=== PATIENT | female | born 1940 | race Caucasian/White ===

== ENCOUNTER 2016-10-10 09:41 | Day surgery (SDC) | payer MEDICARE ==
[2016-10-08 13:53] VITALS: BMI 20.2
[~2016-10-10 09:41] MED LIST: LACTATED RINGERS 1,000 ML IV SCH; LIDOCAINE 1% 20 ML VIAL (10MG/ML) FOR IV START INTRADERMA PRN
[2016-10-10 10:45] VITALS: TEMP 97.6
[2016-10-10] MEDS ORDERED: LIDOCAINE 1% 20 ML VIAL (10MG/ML) FOR IV START INTRADERMA ONE (10:55)
[2016-10-10] MEDS ORDERED: hydrALAZINE HCL 20 MG/ML 1 ML VIAL ONE (11:19)
[2016-10-10] MEDS ORDERED: PROPOFOL 10 MG/ML 20 ML VIAL IV ONE (11:19)
[2016-10-10 11:50] VITALS: RESP 16
--- NOTE | 2016-10-10 12:00 | P.PCN ---
Date of Procedure: 10/10/16 Procedure(s) Performed: Procedure: Esophagogastroduodenoscopy and biopsy. Preoperative diagnosis: Chronic reflux symptoms and occasional dysphagia. Postoperative diagnosis: 1. Small sliding hiatal hernia with no obvious esophagitis or complicated reflux disease. 2. Minimal antral gastritis and duodenitis. 3. Multiple biopsies obtained from the duodenum, antrum and esophagus. Preparation and sedation: Were provided by anesthesia. Brief clinical history: The patient is a 76-year-old female who is referred for this evaluation because of chronic reflux symptoms and more recent occasional dysphagia. She had an upper endoscopy in 2007 around the time she had her colonoscopy. She has no other alarm symptoms. This evaluation is to assess for esophagitis or complicated reflux disease. Procedure: With the patient on her left lateral decubitus position and after informed consent and adequate sedation, I passed the Olympus-GIF 160 video upper endoscope through the cricopharyngeus down the esophagus. GE junction was around 40 cm from the incisors and there was a small, around 1 cm, sliding hiatal hernia. The esophagus did not show any erosions, ulcers, strictures or Mcnulty's esophagus. The endoscope was then passed into the stomach which was insufflated with air and inspected in detail including the retroflex view in the cardia. Finally, the endoscope was passed through the pylorus into the duodenum. Pyloric channel did not have any ulcers. The antrum as well as the duodenal bulb, post bulbar area and descending duodenum showed minimal erythema and minimal friability but no ulcers, erosions or bleeding. I obtained multiple biopsies from the duodenum, antrum and esophagus then the endoscope was withdrawn. There was no indication for dilation. The patient tolerated the procedure well. Plan: The patient was reassured. Will await biopsy results. She will continue her antireflux diet and measures and she will F/U with you as planned. We would be happy to see in the office if her symptoms recur or progress.
[2016-10-10 12:01] VITALS: BP 149/73; PULSE 89
== END 2016-10-10 12:44 | disposition home or self-care (01) ==
LOC: ORWHC2ENDO 09:41
DX: K29.50 Unspecified chronic gastritis without bleeding (principal); K21.0 Gastro-esophageal reflux disease with esophagitis; K20.0 Eosinophilic esophagitis; K44.9 Diaphragmatic hernia without obstruction or gangrene; I10 Essential (primary) hypertension; R32 Unspecified urinary incontinence; Z79.899 Other long term (current) drug therapy; Z88.2 Allergy status to sulfonamides; Z88.8 Allergy status to other drugs, medicaments and biological substances
CPT/HCPCS: 88305; 88342; 43239; J0360; J2704

== ENCOUNTER → 2016-11-01 | Outpatient (CLI) | payer MEDICARE ==
--- NOTE | 2016-11-05 08:36 | MM ---
Reason for exam: screening (asymptomatic). Last mammogram was performed 1 year and 1 month ago. History: Patient is postmenopausal. Physical Findings: A clinical breast exam by your physician is recommended on an annual basis and results should be correlated with mammographic findings. MG 3D Screening Mammo W/Cad Bilateral CC and MLO view(s) were taken. Prior study comparison: October 06, 2015, bilateral MG screening mammo w CAD. There are scattered fibroglandular densities. No significant changes when compared with prior studies. ASSESSMENT: Benign, BI-RAD 2 RECOMMENDATION: Routine screening mammogram of both breasts in 1 year.
== END | disposition home or self-care (01) ==
LOC: RADMAMWWP 10:49
PROVIDERS: ATTEND Family Medicine
DX: Z12.31 Encounter for screening mammogram for malignant neoplasm of breast (principal)
CPT/HCPCS: 77063; G0202

== ENCOUNTER → 2016-12-26 | Outpatient (CLI) | payer MEDICARE ==
--- NOTE | 2016-12-27 11:14 | ECHOF ---
Referral Reason:I08.0 Mitral and aortic Incompetence MEASUREMENTS -------- HEIGHT: 154.9 cm WEIGHT: 45.4 kg BP: 176/76 RVIDd: 1.9 cm (< 3.3) IVSd: 0.7 cm (0.6 - 1.1) LVIDd: 4.2 cm (3.9 - 5.3) LVPWd: 0.7 cm (0.6 - 1.1) IVSs: 1.1 cm LVIDs: 2.8 cm LVPWs: 1.1 cm LAESV Index (A-L): 27.56 ml/m Ao Diam: 2.6 cm (2.0 - 3.7) AV Cusp: 1.1 cm (1.5 - 2.6) LA Diam: 1.3 cm (2.7 - 3.8) MV EXCURSION: 14.056 mm (> 18.000) MV EF SLOPE: 80 mm/s (70 - 150) EPSS: 1.5 cm MV E Bossman: 0.92 m/s MV DecT: 331 ms MV A Bossman: 1.23 m/s MV E/A Ratio: 0.75 AR PHT: 446 ms RAP: 5.00 mmHg RVSP: 32.66 mmHg FINDINGS -------- Sinus rhythm. This was a technically good study. Overall left ventricular systolic function is normal with, an EF between 60 - 65 %. The right ventricle is normal in size and function. Normal LA size by volume 22+/-6 ml/m2. The right atrium is normal in size. There is mild to moderate aortic valve sclerosis. There is fitrucuh-us-iirthx aortic regurgitation. The aortic pressure half-time by doppler is 446ms. There is no evidence of aortic stenosis. The mitral valve leaflets are mildly thickened. Mild mitral annular calcification present. Qyod-uq-jommucjf mitral regurgitation is present. Mild tricuspid regurgitation present. There is no evidence of pulmonary hypertension. The right ventricular systolic pressure, as measured by Doppler, is 32.66mmHg. Trace/mild (physiologic) pulmonic regurgitation. The aortic root size is normal. Normal inferior vena cava with normal inspiratory collapse consistent with estimated right atrial pressure of 5 mmHg. The pericardium is normal. There is no pericardial effusion. CONCLUSIONS -------- 1. Sinus rhythm. 2. Mild mitral annular calcification present. 3. Wexs-wz-zuzatsbu mitral regurgitation is present. 4. Mild tricuspid regurgitation present. 5. There is no evidence of pulmonary hypertension. 6. The right ventricular systolic pressure, as measured by Doppler, is 32.66mmHg. 7. Trace/mild (physiologic) pulmonic regurgitation. 8. The aortic root size is normal. 9. There is no pericardial effusion. 10. This was a technically good study. 11. Overall left ventricular systolic function is normal with, an EF between 60 - 65 %. 12. Normal LA size by volume 22+/-6 ml/m2. 13. There is mild to moderate aortic valve sclerosis. 14. There is boskdpft-la-uqpjvb aortic regurgitation. 15. The aortic pressure half-time by doppler is 446ms. 16. There is no evidence of aortic stenosis. 17. The mitral valve leaflets are mildly thickened. GROUP CIO: Esha Reynoso RDCS
== END | disposition home or self-care (01) ==
LOC: RADECHMAIN 16:06
PROVIDERS: ATTEND Family Medicine
DX: I08.3 Combined rheumatic disorders of mitral, aortic and tricuspid valves (principal)
CPT/HCPCS: 93306

== ENCOUNTER 2017-10-01 09:50 | Emergency (ER) | payer MEDICARE ==
[2017-10-01 10:15] VITALS: BP 184/85; PULSE 87; RESP 18; TEMP 97.5
--- NOTE | 2017-10-01 10:58 | ED ---
Fall HPI - General Chief Complaint: Fall Stated Complaint: Fall, facial injury Time Seen by Provider: 10/01/17 10:26 Source: patient, family Mode of arrival: ambulatory Limitations: no limitations - History of Present Illness Initial Comments: This a 77-year-old female presents emergency Department with chief complaint of slip and fall. Patient states she slipped last night on some ice and fell forward striking her face. She does not believe that she loss conscious. Patient with a facial pain denies any major headache he states that she has slight headache no neck pain no other injuries noted. Patient did state that she has some abrasions to her right periorbital region, ecchymosis. She also states that she has a slight little black that has closed. Patient denies any loose dentition. She has been icing her face. She did have a bloody nose which has resolved. Her tetanus was updated within last year. Patient denies chest pain, shortness breath, back pain, nausea vomiting diarrhea constipation. - Related Data Home Medications Medication Instructions Recorded Confirmed Aspirin [Adult Low Dose Aspirin EC] 81 mg PO DAILY 10/08/16 10/10/16 Biotin 5,000 mcg PO DAILY 10/08/16 10/10/16 Cholecalciferol [Vitamin D3] 5,000 unit PO DAILY 10/08/16 10/10/16 Famotidine 40 mg PO DAILY 10/08/16 10/10/16 Fish Oil/Dha/Epa [Fish Oil 1,200 1 each PO TID 10/08/16 10/10/16 mg Fish Oil] Lisinopril [Zestril] 20 mg PO DAILY 10/08/16 10/10/16 Multivitamin/Iron/Folic Acid 1 each PO DAILY 10/08/16 10/10/16 [Centrum Complete Multivit Tab] Oxybutynin Chloride 5 mg PO BID 10/08/16 10/10/16 Verapamil HCl [Verapamil ER] 180 mg PO DAILY 10/08/16 10/10/16 Vits A,C,E/Lutein/Minerals 1 each PO DAILY 10/08/16 10/10/16 [Ocuvite with Lutein Tablet] Previous Rx's Medication Instructions Recorded Amoxicillin/Potassium Clav 1 tab PO Q12HR #14 tab 10/01/17 [Augmentin 875-125 Tablet] Allergies Allergy/AdvReac Type Severity Reaction Status Date / Time cetirizine [From Zyrtec] Allergy tremors Verified 10/10/16 10:38 guaifenesin [From Mucinex D] Allergy tremors,tyrell Verified 10/10/16 10:38 sea,headach e moxifloxacin [From Avelox] Allergy tremors Verified 10/10/16 10:38 pseudoephedrine Allergy tremors,tyrell Verified 10/10/16 10:38 [From Mucinex D] sea,headach e Sulfa (Sulfonamide Allergy Nausea & Verified 10/01/17 10:15 Antibiotics) Vomiting decongestants Allergy shakiness Uncoded 10/10/16 10:38 Review of Systems ROS Statement: Those systems with pertinent positive or pertinent negative responses have been documented in the HPI. ROS Other: All systems not noted in ROS Statement are negative. Past Medical History Past Medical History: GERD/Reflux, Hypertension Additional Past Medical History / Comment(s): hx mild tricuspid, mitral, aortic valve regurg per pt. swallowing difficulties History of Any Multi-Drug Resistant Organisms: None Reported Additional Past Surgical History / Comment(s): sinus surgeries x2 Past Anesthesia/Blood Transfusion Reactions: Previous Problems w/ Anesthesia Additional Past Anesthesia/Blood Transfusion Reaction / Comment(s): "hard time waking up" and elevated b/p Past Psychological History: No Psychological Hx Reported Smoking Status: Never smoker Past Alcohol Use History: Occasional Past Drug Use History: None Reported - Past Family History Mother Family Medical History: No Reported History General Exam Limitations: no limitations General appearance: alert, in no apparent distress Head exam: Present: atraumatic, normocephalic, normal inspection Eye exam: Present: normal appearance, PERRL, EOMI, periorbital swelling (Mild right), periorbital tenderness, other (Mild right periorbital ecchymosis, abrasions). Absent: scleral icterus, conjunctival injection ENT exam: Present: normal oropharynx (No oral injury noted), mucous membranes moist, TM's normal bilaterally. Absent: normal exam (Healing lip laceration noted to the upper lip) Neck exam: Present: normal inspection, full ROM. Absent: tenderness, meningismus, lymphadenopathy Respiratory exam: Present: normal lung sounds bilaterally. Absent: respiratory distress, wheezes, rales, rhonchi, stridor Cardiovascular Exam: Present: regular rate, normal rhythm, normal heart sounds. Absent: systolic murmur, diastolic murmur, rubs, gallop, clicks GI/Abdominal exam: Present: soft, normal bowel sounds. Absent: distended, tenderness, guarding, rebound, rigid Neurological exam: Present: alert, oriented X3, CN II-XII intact, reflexes normal. Absent: motor sensory deficit Skin exam: Present: warm, dry, intact, normal color. Absent: rash Course Vital Signs 10/01/17 10:11 Temperature 97.5 F L Pulse Rate 87 Respiratory 18 Rate Blood Pressure 184/85 O2 Sat by Pulse 99 Oximetry Medical Decision Making - Medical Decision Making 77-year-old female presented from for support fall facial injury. She does have a tiny nasal bone fracture. She did have epistaxis associated with this. Otherwise CT is unremarkable. Patient follow-up with ENT return parameters were discussed. Disposition Clinical Impression: Fall, Nasal bone fracture, Facial contusion Disposition: HOME SELF-CARE Condition: Stable Instructions: Nasal Fracture (ED) Additional Instructions: Please return to the Emergency Department if symptoms worsen or any other concerns. Prescriptions: Amoxicillin/Potassium Clav [Augmentin 875-125 Tablet] 1 tab PO Q12HR #14 tab Referrals: Jaret Funes MD [Primary Care Provider] - 1-2 days Ceasar Gardner DO [Doctor of Osteopathic Medicine] - 1-2 days Time of Disposition: 12:09
--- NOTE | 2017-10-01 11:39 | CT ---
EXAMINATION TYPE: CT brain beau wo con DATE OF EXAM: 10/01/2017 COMPARISON: NONE HISTORY: Fall, facial injury CT DLP: 1305.15 mGycm, Automated exposure control for dose reduction was used. CONTRAST: None CT of the brain is performed utilizing 3 mm thick sections through the posterior fossa and 3 mm thick sections through the remaining calvarium. Study is performed within 24 hours of arrival to the hospital. No abnormal hyperdensity is present to suggest an acute intracranial hemorrhage. No mass lesion is evident. No acute infarcts are evident. There are some subtle subcortical and periventricular white matter hy podensities, likely on the basis of chronic white matter ischemic change. Ventricles and sulci are appropriate for the patient age. Mucosal thickening and opacification is through the frontal sinuses anterior residual ethmoid air nidia ls and left mid ethmoid air cell regions. There is been prior paranasal sinus surgery. Some mucosal t hickening is noted within the left maxillary sinus. Mastoid air cells are clear. IMPRESSIONS: 1. Chronic appearing white matter ischemic changes. 2. No acute intracranial process. CT cervical spine. COMPARISON: None CT of the cervical spine is performed in the axial plane at 2 mm thick sections. Reconstructed image s in the coronal, and sagittal plane are reviewed on the computer. No acute fractures are evident. Vertebral body alignment is straightened. There is loss of disc height C5-C6. Posterior endplate spurring is present at C5-C6. Some narrowing o f C6-7 disc space is also present. Milder disc space narrowing is through the remaining cervical spin e. Vertebral body heights are preserved. No spinal canal stenosis is evident. Uncovertebral joint hypertrophy is present C3-4 mild to moderate left foraminal stenosis. This is com plicated by some facet hypertrophy. Mild uncovertebral joint hypertrophy is present C4-5 with some le ft facet hypertrophy with mild foraminal narrowing. Uncovertebral joint hypertrophy and endplate spur ring has moderate foraminal narrowing and some flattening of the anterior thecal sac. No spinal canal stenosis is present. Uncovertebral joint hypertrophy is present C6-7 with mild foraminal narrowing. Some minimal apical thickening may be present. Note is made of spina bifida occulta of C1, a normal variant. IMPRESSIONS: 1. Degenerative changes greatest at C5-6 noted above. 2. No acute osseous abnormality.
--- NOTE | 2017-10-01 11:43 | CT ---
EXAMINATION TYPE: CT facial bones wo con DATE OF EXAM: 10/01/2017 COMPARISON: NONE HISTORY: Fall, facial injury CT DLP: 554.47 mGycm CONTRAST: None The paranasal sinuses are examined in the axial plane at 2 mm thick sections. Reconstructed images i n the coronal plane were obtained. There is dental amalgam scatter artifact Mucosal thickening is within the bilateral maxillary sinuses. Prior uncinectomies been performed. Eth moidectomies been performed. There is mucosal thickening within the anterior residual ethmoid air nidia ls as well as left mid ethmoid region airspace. The sphenoid sinus contains an air-fluid level on the left clear on the right. The frontal sinuses are opacified. The septum is evaluated. Septum appears midline. There is been prior uncinectomies. Ostiomeatal unit regions are widely patent.. Subtle right nasal bone fracture may be present. Series 14 image 47. Maxillary spine appears intact. IMPRESSIONS: 1. Mucosal thickening discussed above. There is an air-fluid level within the left maxillary sinus a nd within the sphenoid sinus. Correlate for acute sinusitis. 2. No acute osseous abnormality is evident. 3. Possible tiny nasal bone fracture on the right bridge of the nose.
== END 2017-10-01 12:16 | disposition home or self-care (01) ==
LOC: EC 09:50
DX: S02.2XXA Fracture of nasal bones, initial encounter for closed fracture (principal); S05.11XA Contusion of eyeball and orbital tissues, right eye, initial encounter; I10 Essential (primary) hypertension; K21.9 Gastro-esophageal reflux disease without esophagitis; Z88.1 Allergy status to other antibiotic agents; Z88.2 Allergy status to sulfonamides; Z88.8 Allergy status to other drugs, medicaments and biological substances; Z79.82 Long term (current) use of aspirin; Z79.899 Other long term (current) drug therapy; W00.0XXA Fall on same level due to ice and snow, initial encounter; Y92.89 Other specified places as the place of occurrence of the external cause
CPT/HCPCS: 70450; 70486; 72125; 99283

== ENCOUNTER → 2018-03-26 | Outpatient (CLI) | payer MEDICARE ==
--- NOTE | 2018-03-27 14:38 | MM ---
Reason for exam: screening (asymptomatic). Last mammogram was performed 1 year and 5 months ago. History: Patient is postmenopausal. Physical Findings: A clinical breast exam by your physician is recommended on an annual basis and results should be correlated with mammographic findings. MG 3D Screening Mammo W/Cad Bilateral CC and MLO view(s) were taken. Prior study comparison: November 01, 2016, bilateral MG 3d screening mammo w/cad. October 06, 2015, bilateral MG screening mammo w CAD. There are scattered fibroglandular densities. No significant changes when compared with prior studies. ASSESSMENT: Negative, BI-RAD 1 RECOMMENDATION: Routine screening mammogram of both breasts in 1 year.
== END | disposition home or self-care (01) ==
LOC: RADMAMWWP 07:45
PROVIDERS: ATTEND Family Medicine
DX: Z12.31 Encounter for screening mammogram for malignant neoplasm of breast (principal)
CPT/HCPCS: 77063; 77067

== ENCOUNTER → 2018-11-02 | Outpatient (CLI) | payer MEDICARE ==
--- NOTE | 2018-11-02 14:44 | MR ---
EXAMINATION TYPE: MR iac wo/w con DATE OF EXAM: 11/02/2018 COMPARISON: CT brain October 01, 2017. HISTORY: Vertigo and hearing loss per order. Dizziness per patient. TECHNIQUE: Multiplanar, multisequence images of the brain and brainstem is performed without and with IV contras t, utilizing 4.5 mL intravenous Gadavist . Acoustic nerve disorder protocol. FINDINGS: Diffusion weighted images demonstrate no evidence of a recent infarct or other diffusion ab normality. There is no worrisome extra-axial fluid collection. There is ventricular and sulcal promi nence consistent with mild diffuse cerebral atrophy. There are multifocal areas of T2 hyperintensity seen throughout the superficial, deep, and periventricular white matter. Approximately 80 scattered l esions are seen. Lesions are presumed on basis of product of chronic small vessel ischemic change in patient of this age but overall nonspecific. Midline structures demonstrate normal morphology. The craniocervical junction appears within normal limits. Normal vascular flow voids are seen. Dominant left vertebral artery is noted. Mild to modera te mucosal thickening bilateral frontal sinuses, left greater than right is now present improved from prior. There is moderate mucosal thickening involving ethmoid sinuses bilaterally, left greater than right with some left-sided fluid, improved from prior. There is mild to moderate mucosal thickening in the left maxillary sinus and mild mucosal thickening eccentrically in the right maxillary sinus no t significantly changed from prior.. There is persistent dependent fluid in the left sphenoid sinus. Globes are intact bilaterally. There is no suspicious opacification of mastoid air cells. Vestibulocochlear complexes are symmetric and felt within normal limits. There is no suspicious enhancing cerebellopontine angle mass identifie d bilaterally. IMPRESSION: 1. No suspicious fluid or enhancement involving cerebellopontine angle masses to suggest cause of annie tigo or dizziness. 2. 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 3. Mild diffuse cerebral atrophy with fairly advanced nonspecific white matter changes presumed on ba sis of product of chronic small vessel ischemic change.
== END | disposition home or self-care (01) ==
LOC: RADMRIMAIN 12:41
PROVIDERS: ATTEND Otolaryngology
DX: G31.9 Degenerative disease of nervous system, unspecified (principal); R90.89 Other abnormal findings on diagnostic imaging of central nervous system; R42 Dizziness and giddiness; H91.90 Unspecified hearing loss, unspecified ear
CPT/HCPCS: 70553; A9585

== ENCOUNTER → 2019-01-28 | Outpatient (CLI) | payer MEDICARE ==
--- NOTE | 2019-01-28 10:26 | ECHOF ---
Referral Reason:I08.0 rheumatic disorder MEASUREMENTS -------- HEIGHT: 154.9 cm WEIGHT: 46.7 kg BP: 159/70 RVIDd: 2.4 cm (< 3.3) IVSd: 0.9 cm (0.6 - 1.1) LVIDd: 3.6 cm (3.9 - 5.3) LVPWd: 1.0 cm (0.6 - 1.1) IVSs: 1.5 cm LVIDs: 2.0 cm LVPWs: 1.1 cm LAESV Index (A-L): 35.87 ml/m Ao Diam: 2.5 cm (2.0 - 3.7) AV Cusp: 1.5 cm (1.5 - 2.6) LA Diam: 2.6 cm (2.7 - 3.8) MV EXCURSION: 11.562 mm (> 18.000) MV EF SLOPE: 77 mm/s (70 - 150) EPSS: 1.1 cm MV E Bossman: 0.93 m/s MV DecT: 323 ms MV A Bossman: 1.42 m/s MV E/A Ratio: 0.66 AR PHT: 416 ms RAP: 5.00 mmHg RVSP: 31.49 mmHg FINDINGS -------- Sinus rhythm. This was a technically good study. The left ventricular size is normal. Left ventricular wall thickness is normal. There is normal g lobal left ventricular contractility. Overall left ventricular systolic function is normal with, an EF between 65 - 70 %. The diastolic filling pattern is normal for the age of the patient 12.53. The right ventricle is normal in size. LA is moderately dilated 34-39 ml/m2 The right atrial size is normal. Interatrial and interventricular septum intact. Aortic valve is trileaflet and is mildly thickened. There is mild aortic valve sclerosis. There i s mild aortic regurgitation. There is no evidence of aortic stenosis. Mild mitral annular calcification present. Axaj-ps-fyljwanx mitral regurgitation is present. Mild tricuspid regurgitation present. There is borderline pulmonary artery hypertension. The righ t ventricular systolic pressure, as measured by Doppler, is 31.49mmHg. Trace/mild (physiologic) pulmonic regurgitation. The aortic root size is normal. Normal inferior vena cava with normal inspiratory collapse consistent with estimated right atrial pre ssure of 5 mmHg. There is no pericardial effusion. CONCLUSIONS -------- 1. Sinus rhythm. 2. This was a technically good study. 3. The left ventricular size is normal. 4. Left ventricular wall thickness is normal. 5. There is normal global left ventricular contractility. 6. Overall left ventricular systolic function is normal with, an EF between 65 - 70 %. 7. The diastolic filling pattern is normal for the age of the patient 12.53 8. The right ventricle is normal in size. 9. LA is moderately dilated 34-39 ml/m2 10. The right atrial size is normal. 11. Interatrial and interventricular septum intact. 12. Aortic valve is trileaflet and is mildly thickened. 13. There is mild aortic valve sclerosis. 14. There is mild aortic regurgitation. 15. There is no evidence of aortic stenosis. 16. Mild mitral annular calcification present. 17. Obve-zx-nooybxnj mitral regurgitation is present. 18. Mild tricuspid regurgitation present. 19. There is borderline pulmonary artery hypertension. 20. The right ventricular systolic pressure, as measured by Doppler, is 31.49mmHg. 21. Trace/mild (physiologic) pulmonic regurgitation. 22. The aortic root size is normal. 23. Normal inferior vena cava with normal inspiratory collapse consistent with estimated right atrial pressure of 5 mmHg. 24. There is no pericardial effusion. STUDIO OWNER: Isabela Huff RDCS
== END | disposition home or self-care (01) ==
LOC: RADECHMAIN 07:37
PROVIDERS: ATTEND Family Medicine
DX: I08.3 Combined rheumatic disorders of mitral, aortic and tricuspid valves (principal); I27.21 Secondary pulmonary arterial hypertension
CPT/HCPCS: 93306

== ENCOUNTER → 2019-07-16 | Outpatient (CLI) | payer MEDICARE ==
--- NOTE | 2019-07-16 13:21 | MM ---
Reason for exam: screening (asymptomatic). Last mammogram was performed 1 year and 4 months ago. History: Patient is postmenopausal. Physical Findings: A clinical breast exam by your physician is recommended on an annual basis and results should be correlated with mammographic findings. MG 3D Screening Mammo W/Cad Bilateral CC and MLO view(s) were taken. Prior study comparison: March 26, 2018, bilateral MG 3d screening mammo w/cad. November 01, 2016, bilateral MG 3d screening mammo w/cad. There are scattered fibroglandular densities. There is no discrete abnormality. ASSESSMENT: Negative, BI-RAD 1 RECOMMENDATION: Routine screening mammogram of both breasts in 1 year.
== END | disposition home or self-care (01) ==
LOC: RADMAMWWP 11:04
PROVIDERS: ATTEND Family Medicine
DX: Z12.31 Encounter for screening mammogram for malignant neoplasm of breast (principal)
CPT/HCPCS: 77063; 77067

== ENCOUNTER → 2020-05-16 | Outpatient (CLI) | payer BC, MEDICARE ==
--- NOTE | 2020-05-17 10:50 | ECHOF ---
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 This was a technically adequate study. The left ventricular size is normal. There is mild concentric left ventricular hypertrophy. Left ventricular systolic function is hyperdynamic with an estimated EF of >70%. The diastolic filling p attern is normal for the age of the patient 13.63. The right ventricle is normal in size. Normal LA size by volume 22+/-6 ml/m2. The right atrial size is normal. Interatrial and interventricular septum intact. The aortic valve is trileaflet and appears structurally normal. There is mild aortic regurgitation. There is mild aortic stenosis present. Peak/mean gradient across the Aortic Valve is 19.09mmHg / 9.05mmHg. Jkuo-lb-kquvukph mitral regurgitation is present. Mild tricuspid regurgitation present. There is mild pulmonary hypertension. The right ventricular systolic pressure, as measured by Doppler, is 35.00mmHg. Trace/mild (physiologic) pulmonic regurgitation. The aortic root size is normal. Normal inferior vena cava with normal inspiratory collapse consistent with estimated right atrial pre ssure of 5 mmHg. There is no pericardial effusion. CONCLUSIONS -------- 1. The left ventricular size is normal. 2. There is mild concentric left ventricular hypertrophy. 3. Left ventricular systolic function is hyperdynamic with an estimated EF of >70%. 4. The diastolic filling pattern is normal for the age of the patient 13.63 5. There is mild aortic regurgitation. 6. There is mild aortic stenosis present. 7. Peak/mean gradient across the Aortic Valve is 19.09mmHg / 9.05mmHg. 8. Hfrw-jr-vdkogpci mitral regurgitation is present. 9. Mild tricuspid regurgitation present. 10. There is mild pulmonary hypertension. 11. The right ventricular systolic pressure, as measured by Doppler, is 35.00mmHg. 12. Trace/mild (physiologic) pulmonic regurgitation. [employer]OD CUTTER HELPER: Isabela Huff RDCS
== END | disposition home or self-care (01) ==
LOC: RADECHMAIN 15:26
PROVIDERS: ATTEND Family Medicine
DX: I08.3 Combined rheumatic disorders of mitral, aortic and tricuspid valves (principal); I27.20 Pulmonary hypertension, unspecified
CPT/HCPCS: 93306

== ENCOUNTER → 2020-08-17 | Outpatient (CLI) | payer MEDICARE ==
--- NOTE | 2020-08-18 14:50 | MM ---
Reason for exam: screening (asymptomatic). Last mammogram was performed 1 year and 1 month ago. History: Patient is postmenopausal. Took hormonal contraceptives for 4 years. Physical Findings: A clinical breast exam by your physician is recommended on an annual basis and results should be correlated with mammographic findings. MG 3D Screening Mammo W/Cad Bilateral CC and MLO view(s) were taken. Prior study comparison: July 16, 2019, bilateral MG 3d screening mammo w/cad. March 26, 2018, bilateral MG 3d screening mammo w/cad. The breast tissue is heterogeneously dense. This may lower the sensitivity of mammography. There are benign appearing round calcifications in the left breast. There is no discrete abnormality. ASSESSMENT: Benign, BI-RAD 2 RECOMMENDATION: Routine screening mammogram of both breasts in 1 year.
== END | disposition home or self-care (01) ==
LOC: RADMAMWWP 16:10
PROVIDERS: ATTEND Family Medicine
DX: Z12.31 Encounter for screening mammogram for malignant neoplasm of breast (principal)
CPT/HCPCS: 77063; 77067

== ENCOUNTER → 2021-05-11 | Outpatient (CLI) | payer MEDICARE ==
--- NOTE | 2021-05-12 16:53 | ECHOF ---
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 This was a technically good study. The left ventricular size is normal. Left ventricular wall thickness is normal. Overall left vent ricular systolic function is normal with, an EF between 60 - 65 %. The right ventricle is normal in size. LA is midly dilated 29-33ml/m2. The right atrium is normal in size. Interatrial and interventricular septum intact. There is mild aortic regurgitation. [id number] mitral regurgitation is present. Mild tricuspid regurgitation present. There is borderline pulmonary hypertension. The right ventr icular systolic pressure, as measured by Doppler, is 34.42mmHg. Trace/mild (physiologic) pulmonic regurgitation. The aortic root size is normal. Normal inferior vena cava with normal inspiratory collapse consistent with estimated right atrial pre ssure of 5 mmHg. There is no pericardial effusion. CONCLUSIONS -------- 1. The left ventricular size is normal. 2. Left ventricular wall thickness is normal. 3. Overall left ventricular systolic function is normal with, an EF between 60 - 65 %. 4. LA is midly dilated 29-33ml/m2. 5. There is mild aortic regurgitation. 6. Zufz-xj-nozkegpl mitral regurgitation is present. 7. Mild tricuspid regurgitation present. 8. There is borderline pulmonary hypertension. 9. The right ventricular systolic pressure, as measured by Doppler, is 34.42mmHg. 10. Trace/mild (physiologic) pulmonic regurgitation. 11. There is no pericardial effusion. MERCHANDISE PICKUP/RECEIVING ASSOCIATE: Brittny Newsome RDCS
== END | disposition home or self-care (01) ==
LOC: RADECHMAIN 13:32
PROVIDERS: ATTEND Family Medicine
DX: I34.0 Nonrheumatic mitral (valve) insufficiency (principal); I35.1 Nonrheumatic aortic (valve) insufficiency; I07.1 Rheumatic tricuspid insufficiency; I27.20 Pulmonary hypertension, unspecified; I37.1 Nonrheumatic pulmonary valve insufficiency
CPT/HCPCS: 93306

== ENCOUNTER → 2021-09-07 | Outpatient (CLI) | payer MEDICARE ==
--- NOTE | 2021-09-10 14:25 | MM ---
Reason for exam: screening (asymptomatic). Last mammogram was performed 1 year and 1 month ago. History: Patient is postmenopausal. Took hormonal contraceptives for 4 years. Physical Findings: A clinical breast exam by your physician is recommended on an annual basis and results should be correlated with mammographic findings. MG 3D Screening Mammo W/Cad Bilateral CC and MLO view(s) were taken. Prior study comparison: August 17, 2020, bilateral MG 3d screening mammo w/cad. July 16, 2019, bilateral MG 3d screening mammo w/cad. There are scattered fibroglandular densities. No significant changes when compared with prior studies. ASSESSMENT: Benign, BI-RAD 2 RECOMMENDATION: Routine screening mammogram of both breasts in 1 year.
== END | disposition home or self-care (01) ==
LOC: RADMAMWWP 15:35
PROVIDERS: ATTEND Family Medicine
DX: Z12.31 Encounter for screening mammogram for malignant neoplasm of breast (principal)
CPT/HCPCS: 77063; 77067

== ENCOUNTER → 2022-01-04 | Outpatient (CLI) | payer BC, MEDICARE ==
--- NOTE | 2022-01-06 14:32 | CT ---
EXAMINATION TYPE: CT angio chest CT DLP: 260.80 mGycm, Automated exposure control for dose reduction was used. DATE OF EXAM: 01/04/2022 4:53 PM COMPARISON: None CLINICAL INDICATION:Female, 81 years old with history of I71.2 THORACIC AORTIC ANEURYSM, WITHOUT RUPT URE; Thoracic aortic aneurysm, without rupture TECHNIQUE/CONTRAST: CTA scan of the thorax is performed without and with IV Contrast, patient injected with 80 mL of Isov ue 370, pulmonary embolism protocol. 3D reconstructed and MIP images are created on an independent w orkstation and reviewed. FINDINGS: Pulmonary Artery: There is no evidence for a filling defect within the pulmonary vasculature to sugge st acute pulmonary embolism. The pulmonary artery is of normal size. Lungs/Pleura: No evidence of focal consolidation, pleural effusion or pneumothorax. Airway: Large airways are patent. Heart: Heart is within normal limits for size.. Vasculature: No evidence of aortic aneurysm. The aorta is patent. There is scattered mild atheroscler osis of the aorta. Mediastinum: No gross evidence of adenopathy. Musculoskeletal: No acute osseous abnormalities. Mild multilevel disc degeneration changes Soft Tissues: Unremarkable. Lower neck: No significant findings. Upper Abdomen: No significant findings. IMPRESSION: 1. No evidence of pulmonary embolism. 2. No evidence of aortic aneurysm.
== END | disposition home or self-care (01) ==
LOC: RADCTMAIN 15:39
PROVIDERS: ATTEND Family Medicine
DX: I71.2 Thoracic aortic aneurysm, without rupture (principal)
CPT/HCPCS: 82565; 84520; 71275; 36415; Q9967

== ENCOUNTER → 2022-01-11 | Outpatient (CLI) | payer MEDICARE ==
--- NOTE | 2022-01-11 10:18 | CA ---
Transthoracic Echo Report Name: Heidy Farfan Age: 81 Gender: F : 1940 Exam Date: 01/11/2022 08:55 Exam Location: [place] [facility] Ht (in): 61 Wt (lb): 104 Ordering Physician: Jaret Funes MD Attending/Referring Phys: Bucket Hooker Esha Gonzales RDCS Procedure CPT: Indications: R06.00 Dyspnea Cardiac Hx: Technical Quality: Good Contrast 1: Total Dose (mL): Contrast 2: Total Dose (mL): MEASUREMENTS (Male / Female) Normal Values 2D ECHO LV Diastolic Diameter PLAX 3.5 cm 4.2 - 5.9 / 3.9 - 5.3 cm LV Systolic Diameter PLAX 1.9 cm IVS Diastolic Thickness 0.9 cm 0.6 - 1.0 / 0.6 - 0.9 cm LVPW Diastolic Thickness 0.9 cm 0.6 - 1.0 / 0.6 - 0.9 cm LV Relative Wall Thickness 0.5 RV Internal Dim ED PLAX 1.8 cm LVOT Diameter 1.4 cm LA Volume 38.1 cm??? 18 - 58 / 22 - 52 cm??? M-MODE Aortic Root Diameter MM 2.5 cm LA Systolic Diameter MM 2.2 cm LA Ao Ratio MM 0.9 MV E Point Septal Separation 1.2 cm AV Cusp Separation MM 1.4 cm DOPPLER AV Peak Velocity 224.0 cm/s AV Peak Gradient 20.1 mmHg AV Mean Velocity 140.7 cm/s AV Mean Gradient 9.4 mmHg AV Velocity Time Integral 42.9 cm AI Peak Velocity 386.3 cm/s AI Peak Gradient 59.7 mmHg AI Pressure Half Time 897.9 ms LVOT Peak Velocity 131.9 cm/s LVOT Peak Gradient 7.0 mmHg AV Area Cont Eq pk 0.9 cm??? MV Area PHT 3.6 cm??? MR Peak Velocity 507.7 cm/s MR Peak Gradient 103.1 mmHg Mitral E Point Velocity 98.8 cm/s Mitral A Point Velocity 165.9 cm/s Mitral E to A Ratio 0.6 MV Deceleration Time 212.8 ms MV E' Velocity 5.8 cm/s Mitral E to MV E' Ratio 16.9 TR Peak Velocity 250.8 cm/s TR Peak Gradient 25.2 mmHg Right Ventricular Systolic Press 28.2 mmHg FINDINGS Left Ventricle Left ventricular ejection fraction is estimated at 55-60 %. Left ventricular cavity size normal. Grade 1 diastolic dysfunction. Right Ventricle The right ventricle is normal in size and function. Right Atrium The right atrium is normal in size. Left Atrium The left atrium is normal in size. Mitral Valve Structurally normal mitral valve without significant stenosis or prolapse. There is moderate mitral regurgitation. Aortic Valve Mild aortic stenosis with a peak gradient of 20 mmHg and a mean gradient of 9 mmHg. . There is mild aortic regurgitation. Tricuspid Valve Structurally normal tricuspid valve without significant stenosis. Pulmonary artery systolic pressure is normal. Mild tricuspid regurgitation. Pulmonic Valve Structurally normal pulmonic valve without significant stenosis. There is no pulmonic regurgitation. Pericardium Normal pericardium without effusion. Aorta Normal aortic root dimension. CONCLUSIONS Normal LV size and systolic function Addendum mitral valve leaflets, somewhat thickened, especially the anterior leaflet with moderate mitral regurgitation Previewed by: Dr. Hitesh Xie MD (Electronically Signed) Final Date: 11 January 2022 10:18
--- NOTE | 2022-01-11 11:33 | NM ---
EXAMINATION TYPE: NM stress cardiolite complete DATE OF EXAM: 01/11/2022 COMPARISON: NONE HISTORY: Chest pain TECHNIQUE: After the intravenous administration of 9.96 mCi Tc 99m Sestamibi - Rest images obtained 50 minutes post injection. The patient exercised using a JASWINDER protocol and 1 minute prior to peak exercise was injected with 25.3 mCi Tc 99m Sestamibi - Stress images obtained 25 minutes post injecti on. FINDINGS: Targeted heart rate was achieved during performance of the study. Review of stress and rest SPECT travis ges demonstrates no distinct perfusion abnormality. Gated analysis shows normal wall motion with an estimated left ventricular ejection fraction of 71 %. IMPRESSION: No scintigraphic evidence for reversible ischemia
--- NOTE | 2022-01-11 11:42 | CA ---
Exercise Stress Test Report Name: Heidy Farfan Exam Date: 01/11/2022 10:03 Exam Location: [place] [facility] Ht (in): 61 Wt (lb): 104 BSA: 1.43 Ordering Phys: Jaret Funes MD Referring Phys: Shantel,, Technologist: DIAN,, Age: 81 Gender: F : 1940 Procedure CPT: Indications: R06.00 Dyspnea ICD-10 Codes: Patient History: Medications: ASA 81 mg,,,,,, latanoproot,,,,,, FISH OIL,,,,,, OCUVITE,,,,,, VIT D3,,,,,, TERAZOSIN,,,,,, FAMOTIDINE,,,,,, ESCITALOPRAM,,,,,, LISNOPRIL,,,,,, OXYBUTYNIN,,,,,, FLUTICASONE,,,,, Meds past 24 hrs: Pretest Chest Pain: STRESS TEST Rick Protocol Exercise Duration (min:sec): 06:[address] Depressions (mm): Angina Score: Rubio Score: Resting HR (bpm): 92 Peak HR (bpm): 126 Resting BP (mmHg): 166 / 76 Peak BP (mmHg): 202 / 54 MPHR: 137 Target HR: 116 % MPHR: 92 METS: 7.1 Total Dose: Peak Dose: Atropine: Double Product: 72732 BP Response: Stress Termination: TARGET HR REACHED/MAX EXERTION Stress Symptoms: NO SYMPTOMS Stress Summary: ECG ANALYSIS Resting ECG: Stress ECG: CONCLUSIONS Baseline heart rate 89 beats a minute, Baseline blood pressure 166/76 mmHg Baseline twelve-lead EKG showed normal sinus rhythm normal cardiac intervals Patient exercised on a Rick protocol for only 6 minutes Hypertensive response to exercise Peak blood pressure 202/54 mmHg Average exercise capacity No ECG is for ischemia arrhythmia Dr. Hitesh Xie MD (Electronically Signed) Final Date: 11 January 2022 11:42
== END | disposition home or self-care (01) ==
LOC: RADNMMAIN 08:02
PROVIDERS: ATTEND Family Medicine
DX: R06.00 Dyspnea, unspecified (principal)
CPT/HCPCS: 93017; 93306; 78452; A9500

== ENCOUNTER → 2022-10-31 | Outpatient (CLI) | payer BC, MEDICARE ==
--- NOTE | 2022-11-01 07:53 | MM ---
Reason for Exam: Screening (asymptomatic). Last mammogram was performed 1 year(s) and 2 month(s) ago. Patient History: Menarche at age 10. First Full-Term at age 21. Postmenopausal. Patient used Hormonal Contraceptives for 4 years. Risk Values: Davida 5 year model risk: 1.3%. NCI Lifetime model risk: 1.4%. Prior Study Comparison: 07/16/2019 Bilateral Screening Mammogram, [facility]. 08/17/2020 Bilateral Screening Mammogram, [facility]. 09/07/2021 Bilateral Screening Mammogram, [facility]. Tissue Density: There are scattered fibroglandular densities. Findings: Analyzed By CAD. There is no suspicious group of microcalcifications or new suspicious mass in either breast. Overall Assessment: Negative, BI-RAD 1 Management: Screening Mammogram of both breasts in 1 year. A clinical breast exam by your physician is recommended on an annual basis and results should be correlated with mammographic findings. [facility] will attempt to contact patient to return for supplemental views and ultrasound if indicated. Electronically signed and approved by: Gustavo De La Rosa DO
== END | disposition home or self-care (01) ==
LOC: RADMAMWWP 11:15
PROVIDERS: ATTEND Family Medicine
DX: Z12.31 Encounter for screening mammogram for malignant neoplasm of breast (principal); Z78.0 Asymptomatic menopausal state
CPT/HCPCS: 77063; 77067